=== PATIENT | female | born 1980 | race Caucasian/White ===

== ENCOUNTER 2018-04-15 19:27 | Emergency (ER) | payer SELFPAY ==
[~2018-04-15] VITALS: Ht 157.5 cm; Wt 75.0 kg
[2018-04-15 19:35] VITALS: BP 124/90
[2018-04-15] MEDS ORDERED: IBUPROFEN 200 MG TABLET PO ONE (20:00)
[2018-04-15] MEDS ORDERED: IBUPROFEN 200 MG TABLET ONE (20:07)
== END 2018-04-15 20:13 | disposition home or self-care (01) ==
LOC: ED 19:45
DX: N94.6 Dysmenorrhea, unspecified (principal); N93.9 Abnormal uterine and vaginal bleeding, unspecified; M32.9 Systemic lupus erythematosus, unspecified; F17.290 Nicotine dependence, other tobacco product, uncomplicated; Z02.89 Encounter for other administrative examinations
CPT/HCPCS: 99283; 99406